=== PATIENT | female | born 1955 | race Caucasian/White ===

== ENCOUNTER 2020-11-24 19:26 | Emergency (ER) | payer OTHER ==
[~2020-11-24] VITALS: Ht 157.5 cm; Wt 47.6 kg
[~2020-11-24 19:26] MED LIST: AZIT250 PO; BP MED; CEPH500 PO; CIPR500 PO; CRUTCH4 USE; CYCL10 PO; ESOM20 PO; HYDACE5 PO; IBUP600 PO; IBUP800 PO; LOVA20 PO; METCAR500 PO; METO10 PO; NAPR500 PO; OMEP20ER PO; OXYACE5T PO; PENVK250 PO; PENVK500 PO; PROM25 PO; RXCYCL10 PO; RXHYDACE PO; RXOXYACE PO; RXPROM25 PO; SUCR1 PO
[2020-11-24] MEDS ORDERED: HYDR1TAB94 PO (21:04)
== END 2020-11-24 21:15 | disposition home or self-care (01) ==
LOC: ER 19:26
DX: S82.61XA Displaced fracture of lateral malleolus of right fibula, initial encounter for closed fracture (principal); S82.891A Other fracture of right lower leg, initial encounter for closed fracture; I10 Essential (primary) hypertension; F17.200 Nicotine dependence, unspecified, uncomplicated; W18.30XA Fall on same level, unspecified, initial encounter
CPT/HCPCS: 29515; 73590; 73610; 99283-25; A9270

== ENCOUNTER 2021-08-03 19:24 | Emergency (ER) | payer OTHER ==
[~2021-08-03] VITALS: Ht 157.5 cm; Wt 45.4 kg
[~2021-08-03 19:24] MED LIST changes: +HYDR1TAB94 PO
[2021-08-03] MEDS ORDERED: LISI20 PO (19:33)
[2021-08-03 20:15] LABS: BASOPHILS ABSOLUTE AUTO 0.07 K/mm3 (0.00-0.23); BASOPHILS PERCENT AUTO 1 % (0-2); EOSINOPHILS ABSOLUTE AUTO 0.05 K/mm3 (0.00-0.68); EOSINOPHILS PERCENT AUTO 1 % (0-6); Hematocrit 41.5 % (33.0-51.0); Hemoglobin 14.5 g/dL (11.5-16.0); IMMATURE GRAN ABSOLUTE AUTO 0.01 K/mm3 (0.00-0.10); IMMATURE GRAN PERCENT AUTO 0 % (0-1); LYMPHOCYTES ABSOLUTE AUTO 2.35 K/mm3 (0.84-5.20); LYMPHOCYTES PERCENT AUTO 44 % (21-46); MONOCYTES ABSOLUTE AUTO 0.41 K/mm3 (0.16-1.47); MONOCYTES PERCENT AUTO 8 % (4-13); Mean Corpuscular HGB 34.6 pg (26.0-34.0); Mean Corpuscular HGB Conc 34.9 g/dL (31.5-36.5); Mean Corpuscular Volume 99 fL (80-100); Mean Platelet Volume 9.8 fL (9.1-12.4); NEUTROPHILS ABSOLUTE AUTO 2.46 K/mm3 (1.96-9.15); NEUTROPHILS PERCENT AUTO 46 % (41-73); Platelet Count 431 K/mm3 (150-400); RDW Coefficient Variation 12.5 % (11.7-14.2); RDW Standard Deviation 45.7 fL (35.1-46.3); Red Blood Cell Count 4.19 M/mm3 (3.80-5.20); White Blood Cell Count 5.35 K/mm3 (4.00-11.30)
[2021-08-03 20:42] LABS: Anion Gap 8 mmol/L (6-16); Blood Urea Nitrogen 5 mg/dL (8-24); Bun/Creatinine Ratio 9.2 (12.0-20.0); CO2, Blood 25 mmol/L (21-32); Calcium, Blood 8.7 mg/dL (8.5-10.1); Chloride, Blood 109 mmol/L (98-108); Creatinine, Blood 0.55 mg/dL (0.40-1.00); Glomerular Filtration Rate >60 (60-); Glucose, Blood 107 mg/dL (70-99); Potassium, Blood 3.6 mmol/L (3.5-5.5); Sodium, Blood 142 mmol/L (136-145)
== END 2021-08-03 20:36 | disposition home or self-care (01) ==
LOC: ER 19:24
PROVIDERS: Student in an Organized Health Care Education/Training Program
DX: K08.89 Other specified disorders of teeth and supporting structures (principal); M06.9 Rheumatoid arthritis, unspecified; F17.200 Nicotine dependence, unspecified, uncomplicated; Z85.818 Personal history of malignant neoplasm of other sites of lip, oral cavity, and pharynx; Z79.899 Other long term (current) drug therapy
CPT/HCPCS: 36415; 80048; 85025; 96374; 99283-25; A9270; J1885; J7030

== ENCOUNTER 2021-11-10 03:00 | Emergency (ER) | payer OTHER ==
[~2021-11-10] VITALS: Ht 157.5 cm; Wt 43.1 kg
[~2021-11-10 03:00] MED LIST changes: +LISI20 PO
== END 2021-11-10 10:22 | disposition home or self-care (01) ==
LOC: ER 03:00
DX: T85.528A Displacement of other gastrointestinal prosthetic devices, implants and grafts, initial encounter (principal); Y73.8 Miscellaneous gastroenterology and urology devices associated with adverse incidents, not elsewhere classified; I10 Essential (primary) hypertension; C06.9 Malignant neoplasm of mouth, unspecified; F17.200 Nicotine dependence, unspecified, uncomplicated; Z98.890 Other specified postprocedural states
CPT/HCPCS: 74018; J1170; J2270; J7030

== ENCOUNTER 2021-11-27 18:39 | Emergency (ER) | payer OTHER ==
[~2021-11-27] VITALS: Ht 157.5 cm; Wt 40.8 kg
== END 2021-11-27 20:07 | disposition home or self-care (01) ==
LOC: ER 18:39
DX: T85.628A Displacement of other specified internal prosthetic devices, implants and grafts, initial encounter (principal); F10.129 Alcohol abuse with intoxication, unspecified; I10 Essential (primary) hypertension; F17.210 Nicotine dependence, cigarettes, uncomplicated; Z98.890 Other specified postprocedural states
CPT/HCPCS: 99284

== ENCOUNTER 2022-02-05 14:04 | Emergency (ER) | payer OTHER ==
[~2022-02-05] VITALS: Ht 157.5 cm; Wt 38.6 kg
[2022-02-05 15:00] LABS: BASOPHILS ABSOLUTE AUTO 0.04 K/mm3 (0.00-0.23); BASOPHILS PERCENT AUTO 1 % (0-2); EOSINOPHILS PERCENT AUTO 0 % (0-6); Hemoglobin 10.2 g/dL (11.5-16.0); IMMATURE GRAN ABSOLUTE AUTO 0.01 K/mm3 (0.00-0.10); IMMATURE GRAN PERCENT AUTO 0 % (0-1); LYMPHOCYTES ABSOLUTE AUTO 0.78 K/mm3 (0.84-5.20); LYMPHOCYTES PERCENT AUTO 13 % (21-46); MONOCYTES ABSOLUTE AUTO 0.43 K/mm3 (0.16-1.47); MONOCYTES PERCENT AUTO 7 % (4-13); Mean Corpuscular HGB 31.4 pg (26.0-34.0); Mean Corpuscular HGB Conc 32.9 g/dL (31.5-36.5); Mean Corpuscular Volume 95 fL (80-100); Mean Platelet Volume 10.1 fL (9.1-12.4); NEUTROPHILS ABSOLUTE AUTO 4.62 K/mm3 (1.96-9.15); NEUTROPHILS PERCENT AUTO 79 % (41-73); Platelet Count 422 K/mm3 (150-400); RDW Coefficient Variation 15.3 % (11.7-14.2); RDW Standard Deviation 53.2 fL (35.1-46.3); Red Blood Cell Count 3.25 M/mm3 (3.80-5.20); White Blood Cell Count 5.88 K/mm3 (4.00-11.30)
[2022-02-05] MEDS ORDERED: Ativan1 MG PO (15:03)
[2022-02-05] MEDS ORDERED: HYOSCYAMINE0.125 MG SL (15:04)
[2022-02-05] MEDS ORDERED: TRANSDERM-SCOP1 EA10 TD (15:04)
[2022-02-05] MEDS ORDERED: DURAMORPH0.5 MG/1 M (15:05)
[2022-02-05 16:06] LABS: Albumin, Blood 1.8 g/dL (3.4-5.0); Albumin/Globulin Ratio 0.5 (0.8-1.8); Bilirubin, Total 0.6 mg/dL (0.1-1.0); Bun/Creatinine Ratio 19.6 (12.0-20.0); Calcium, Blood 8.1 mg/dL (8.5-10.1); Creatinine, Blood 0.51 mg/dL (0.40-1.00); Globulin, Blood 3.3 g/dL (2.2-4.0); Magnesium, Blood 1.8 mg/dL (1.6-2.4); Potassium, Blood 3.4 mmol/L (3.5-5.5); Total Protein, Blood 5.1 g/dL (6.4-8.2)
== END 2022-02-05 17:53 | disposition home or self-care (01) ==
LOC: ER 14:04
PROVIDERS: Student in an Organized Health Care Education/Training Program
DX: R52 Pain, unspecified (principal); Z51.5 Encounter for palliative care; D49.6 Neoplasm of unspecified behavior of brain; I10 Essential (primary) hypertension; F17.210 Nicotine dependence, cigarettes, uncomplicated; Z88.8 Allergy status to other drugs, medicaments and biological substances; Z85.819 Personal history of malignant neoplasm of unspecified site of lip, oral cavity, and pharynx
CPT/HCPCS: 80053; 82947; 83690; 83735; 85025; J3010

== ENCOUNTER 2022-02-20 17:24 | Emergency (ER) | payer OTHER ==
[~2022-02-20] VITALS: Ht 157.5 cm; Wt 36.3 kg
[~2022-02-20 17:24] MED LIST changes: +Ativan1 MG PO; +DURAMORPH0.5 MG/1 M; +HYOSCYAMINE0.125 MG SL; +LORA2L PO; +MORPHINE S10 MG/1 M2 PO; +QUET25 PO; +TRANSDERM-SCOP1 EA10 TD
== END 2022-02-20 21:23 | disposition home or self-care (01) ==
LOC: ER 17:24
DX: G89.29 Other chronic pain (principal); R41.0 Disorientation, unspecified; C76.0 Malignant neoplasm of head, face and neck; C79.31 Secondary malignant neoplasm of brain; I10 Essential (primary) hypertension; Z79.899 Other long term (current) drug therapy
CPT/HCPCS: 36415; 82947; J2270

== ENCOUNTER 2022-02-23 20:59 | Emergency (ER) | payer OTHER ==
[~2022-02-23] VITALS: Ht 152.4 cm; Wt 40.8 kg
== END 2022-02-23 23:47 | disposition home or self-care (01) ==
LOC: ER 20:59
DX: S50.311A Abrasion of right elbow, initial encounter (principal); S50.312A Abrasion of left elbow, initial encounter; I10 Essential (primary) hypertension; Z79.899 Other long term (current) drug therapy; W19.XXXA Unspecified fall, initial encounter
CPT/HCPCS: 99284